=== PATIENT | female | born 1990 | race Caucasian/White ===

== ENCOUNTER 2023-12-03 18:09 | Emergency (ER) | payer BC, OTHER ==
[2023-12-03 18:23] VITALS: BP 122/70; PULSE 100; RESP 16; TEMP 98.5; BMI 19.7
[2023-12-03] MEDS: KETOROLAC TROMETHAMINE 30 MG/1 ML VIAL IM ONE (19:20)
[2023-12-03] MEDS ORDERED: KETOROLAC TROMETHAMINE 30 MG/1 ML VIAL ONE (19:21)
== END 2023-12-03 20:12 | disposition home or self-care (01) ==
LOC: JERFT 18:09
PROC: 3E0133Z Introduction of Anti-inflammatory into Subcutaneous Tissue, Percutaneous Approach (ICD-10-PCS; principal; 2023-12-03)
DX: S00.03XA Contusion of scalp, initial encounter (principal); W01.198A Fall on same level from slipping, tripping and stumbling with subsequent striking against other object, initial encounter
CPT/HCPCS: 99284-25